=== PATIENT | male | born 1965 | race Caucasian/White ===

== ENCOUNTER 2017-06-02 05:37 | Day surgery (SDC) | payer OTHER ==
[~2017-06-02] VITALS: Ht 167.6 cm; Wt 91.8 kg
[2017-06-02] MEDS ORDERED: SODIUM CHLORIDE 0.9% 1,000 ML IV ONE ×2 (05:57→06:30)
[2017-06-02] MEDS ORDERED: AMLO-511 PO (06:16)
[2017-06-02] MEDS ORDERED: FLUT16H NASAL (06:16)
[2017-06-02] MEDS ORDERED: FLUO-191 PO (06:16)
[2017-06-02] MEDS ORDERED: MONT10TA21 PO (06:16)
[2017-06-02] MEDS ORDERED: TRAZ150 PO (06:16)
[2017-06-02] MEDS ORDERED: MOME13HF IH (06:16)
[2017-06-02] MEDS ORDERED: OMEP20 PO (06:16)
[2017-06-02] MEDS ORDERED: ACET1TAB12 PO (06:16)
[2017-06-02] MEDS ORDERED: MIDAZOLAM HCL 2 MG/2 ML VIAL ONE (07:20)
[2017-06-02] MEDS ORDERED: FentaNYL CITRATE-PF 100 MCG/2 ML VIAL ONE (07:21)
[2017-06-02] MEDS ORDERED: MethylPREDNISolone SOD SUCC 125 MG/2 ML VIAL IVP ONE (07:45)
[2017-06-02] MEDS ORDERED: OXYGEN THERAPY IH SCH (08:00)
[2017-06-02] MEDS ORDERED: MethylPREDNISolone SOD SUCC 125 MG/2 ML VIAL ONE (08:06)
[2017-06-02] MEDS ORDERED: LIDOCAINE HCL 4% 50 ML SOLUTION TP ONE (17:25)
[2017-06-02] MEDS ORDERED: BENZOCAINE 20% 50 MCG/SPRAY 57 GM TP ONE (17:25)
[2017-06-02] MEDS ORDERED: ALBUTEROL SULFATE 2.5 MG/0.5 ML NEB SOLUTION NEB ONE (17:25)
[2017-06-02] MEDS ORDERED: LIDOCAINE HCL 2% 30 ML JELLY TP ONE (17:25)
== END 2017-06-02 08:50 | disposition home or self-care (01) ==
LOC: SURGERY 05:37
PROVIDERS: ATTEND Internal Medicine Critical Care Medicine
DX: J38.4 Edema of larynx (principal); B37.0 Candidal stomatitis; M54.9 Dorsalgia, unspecified; Z87.891 Personal history of nicotine dependence
CPT/HCPCS: 31623; 31624; 71010; 87015 ×2; 87070; 87101; 87147; 87205; 87220; 88108; 88312; J2250; J2930; J3010; J7030